=== PATIENT | female | born 1995 | race Caucasian/White ===

== ENCOUNTER 2018-07-11 10:52 | Emergency (ER) | payer OTHER ==
--- NOTE | 2018-07-11 11:38 | RAD REPORT ---
EXAM DESCRIPTION: CT - [id number] - 07/11/2018 11:28 am CLINICAL HISTORY: Fall, head and neck injury COMPARISON: None. TECHNIQUE: Axial 5 mm thick images of the head were obtained. Axial 2 mm thick images of the cervic al spine were obtained with sagittal and coronal reconstruction images generated and reviewed. All CT scans are performed using dose optimization technique as appropriate and may include automated exposure control or mA/KV adjustment according to patient size. FINDINGS: No intracranial hemorrhage, mass, edema or acute intracranial finding. No suspicion for ac radha infarction. No extra-axial fluid collections. Mastoid air cells and paranasal sinuses are clear. No globe or orbit abnormality seen. Cervical bodies are normal in height. No subluxation abnormality. Straightening of the usual cervical lordosis could be muscle spasm or positioning artifact. No disk space narrowing. No fracture or acut e bony abnormality. Central canal detail is inherently limited. No paraspinal mass or hematoma. IMPRESSION: Negative CT head examination for acute or significant finding. Negative CT cervical spine examination for acute or significant finding.
--- NOTE | 2018-07-11 11:47 | RAD REPORT ---
EXAM DESCRIPTION: RAD - Shoulder Left 2 View - 07/11/2018 11:34 am CLINICAL HISTORY: Fall, shoulder pain COMPARISON: None. TECHNIQUE: Internal and external rotation views of the left shoulder were obtained. FINDINGS: There is no fracture or dislocation. AC joint is normal in appearance. No acute or suspici ous findings. IMPRESSION: Negative two-view left shoulder examination.
--- NOTE | 2018-07-11 13:22 | EDPHYS ---
Physician Documentation [facility] Name: Krissy Lal Age: 22 yrs Sex: Female : 1995 Arrival Date: 07/11/2018 Time: 10:57 Bed 10 Private MD: ED Physician Filipe Walden HPI: 07/11 12:56 This 22 yrs old Female presents to ER via Ambulatory with complaints of kb Shoulder Injury, Syncope. 12:56 The patient or guardian complains of an injury, pain, that is acute. left shoulder. kb Context: The problem was sustained at home, resulted from a fall, The patient reports no decreased range of motion. The patient reports no obvious deformity. Onset: The symptoms/episode began/occurred yesterday. Modifying factors: the symptoms are alleviated by nothing. The symptoms are aggravated by movement. Associated signs and symptoms: The patient has no apparent associated signs or symptoms. Severity of symptoms: At their worst the symptoms were moderate, in the emergency department the symptoms are unchanged. Treatment prior to arrival includes: no previous treatment. The patient has not experienced similar symptoms in the past. The patient has not recently seen a physician. Pt states she was drunk last night, fell onto left shoulder and has pain to it now. Full ROM, but slow and painful when doing it. Also reports she had a syncopal episode when she walked to the bathroom this morning at 0600. Denies headache, dizziness or any other symptoms at this time. . 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 - Social history:: Smoking status: Patient/guardian denies using tobacco. - Ebola Screening: : Patient negative for fever greater than or equal to 101.5 degrees Fahrenheit, and additional compatible Ebola Virus Disease symptoms Patient denies exposure to infectious person Patient denies travel to an Ebola-affected area in the 21 days before illness onset No symptoms or risks identified at this time. ROS: 12:56 Constitutional: Negative for fever, chills, and weight loss, Cardiovascular: Negative kb for chest pain, palpitations, and edema, Respiratory: Negative for shortness of breath, cough, wheezing, and pleuritic chest pain, Abdomen/GI: Negative for abdominal pain, nausea, vomiting, diarrhea, and constipation, Back: Negative for injury and pain, : Negative for injury, bleeding, discharge, and swelling, Skin: Negative for injury, rash, and discoloration. 12:56 MS/extremity: Positive for injury or acute deformity, pain. Exam: 12:56 Constitutional: This is a well developed, well nourished patient who is awake, alert, kb and in no acute distress. Head/Face: Normocephalic, atraumatic. Chest/axilla: Normal chest wall appearance and motion. Nontender with no deformity. No lesions are appreciated. Cardiovascular: Regular rate and rhythm with a normal S1 and S2. No gallops, murmurs, or rubs. Normal PMI, no JVD. No pulse deficits. Respiratory: Lungs have equal breath sounds bilaterally, clear to auscultation and percussion. No rales, rhonchi or wheezes noted. No increased work of breathing, no retractions or nasal flaring. Abdomen/GI: Soft, non-tender, with normal bowel sounds. No distension or tympany. No guarding or rebound. No evidence of tenderness throughout. Back: No spinal tenderness. No costovertebral tenderness. Full range of motion. Skin: Warm, dry with normal turgor. Normal color with no rashes, no lesions, and no evidence of cellulitis. Neuro: Awake and alert, GCS 15, oriented to person, place, time, and situation. Cranial nerves II-XII grossly intact. Motor strength 5/5 in all extremities. Sensory grossly intact. Cerebellar exam normal. Normal gait. 12:56 Musculoskeletal/extremity: Extremities: grossly normal except: noted in the left shoulder: pain, ROM: limited active range of motion due to pain, in the left shoulder, Circulation is intact in all extremities. Sensation intact. Vital Signs: 11:10 BP 130 / 94; Pulse 105; Resp 15; Temp 97.8; Pulse Ox 97% on R/A; Weight 90.72 kg; aj Height 5 ft. 5 in. (165.10 cm); 12:45 BP 117 / 83 Supine; Pulse 91; Resp 16; Pulse Ox 100% on R/A; iw 12:48 BP 120 / 76 Sitting; Pulse 95; Resp 16; Pulse Ox 100% ; iw 12:52 BP 109 / 86 Standing; Pulse 110; Resp 16; iw 11:10 Body Mass Index 33.28 (90.72 kg, 165.10 cm) MDM: 11:53 Patient medically screened. kb 13:00 Data reviewed: vital signs, nurses notes. Data interpreted: Pulse oximetry: on room air kb is 100 %. Interpretation: normal. 13:21 Counseling: I had a detailed discussion with the patient and/or guardian regarding: the kb historical points, exam findings, and any diagnostic results supporting the discharge/admit diagnosis, lab results, radiology results, the need for outpatient follow up, a family practitioner, to return to the emergency department if symptoms worsen or persist or if there are any questions or concerns that arise at home. 07/11 12:27 Order name: Urine Dipstick--Ancillary (enter results) [facility] 07/11 12:27 Order name: Urine --Ancillary (enter results) [facility] 07/11 11:12 Order name: XRAY Shoulder LEFT 2 view; Complete Time: 11:52 07/11 11:14 Order name: CT Head C Spine; Complete Time: 11:52 07/11 11:14 Order name: EKG - Nurse/Tech; Complete Time: 13:16 07/11 11:52 Order name: Orthostatics; Complete Time: 12:54 kb 07/11 11:52 Order name: Urine Dipstick-Ancillary (obtain specimen); Complete Time: 12:26 kb 07/11 12:27 Order name: Urine Test (obtain specimen); Complete Time: 12:27 [facility] 07/11 12:56 Order name: Sling; Complete Time: 13:22 kb Administered Medications: No medications were administered Disposition: 07/11/18 13:21 Discharged to Home. Impression: Pain in left shoulder, Syncope and collapse. - Condition is Stable. - Discharge Instructions: Shoulder Pain, [id number], Syncope, [id number]. - Work release form, Medication Reconciliation Form, Thank You Letter, Antibiotic Education, Prescription Opioid Use form. - Follow up: Emergency Department; When: As needed; Reason: Worsening of condition. Follow up: Private Physician; When: 2 - 3 days; Reason: Recheck today's complaints, Continuance of care, Re-evaluation by your physician. Signatures: Dispatcher [employer] [place], LUMBER ESTIMATOR-C LUMBER ESTIMATOR-Alyssa Cornelius, RN RN Michael Jiménez, AUGUSTO GARSIAN erwin [place], Ty hood1 Corrections: (The following items were deleted from the chart) 13:39 13:21 07/11/2018 13:21 Discharged to Home. Impression: Pain in left shoulder; Syncope em and collapse. Condition is Stable. Forms are Medication Reconciliation Form, Thank You Letter, Antibiotic Education, Prescription Opioid Use. Follow up: Emergency Department; When: As needed; Reason: Worsening of condition. Follow up: Private Physician; When: 2 - 3 days; Reason: Recheck today's complaints, Continuance of care, Re-evaluation by your physician. kb
--- NOTE | 2018-07-11 13:22 | ER ---
Nurse's Notes [facility] Name: Krissy Lal Age: 22 yrs Sex: Female : 1995 Arrival Date: 07/11/2018 Time: 10:57 Bed 10 Private MD: Diagnosis: Pain in left shoulder;Syncope and collapse Presentation: 07/11 11:08 Presenting complaint: Patient states: Left shoulder pain after falling last night. Full aj ROM in triage. Patient able to carry wallet with affected arm. Patient also reports syncopal episode this AM when walking to the bathroom. Unknown LOC, reports waking up 1 minute later on bathroom floor. Transition of care: patient was not received from another setting of care. Onset of symptoms was July 10, 2018. Risk Assessment: Do you want to hurt yourself or someone else? Patient reports no desire to harm self or others. Initial Sepsis Screen: Does the patient meet any 2 criteria? No. Patient's initial sepsis screen is negative. Does the patient have a suspected source of infection? No. Patient's initial sepsis screen is negative. Care prior to arrival: None. 11:08 Method Of Arrival: Ambulatory 11:08 Acuity: PAULINO 3 aj Triage Assessment: 11:10 General: Appears in no apparent distress. comfortable, Behavior is calm, cooperative, aj appropriate for age. Pain: Complains of pain in anterior aspect of left shoulder and posterior aspect of left shoulder Pain currently is 8 out of 10 on a pain scale. Neuro: Level of Consciousness is awake, alert, obeys commands, Oriented to person, place, time, situation, Appropriate for age. Respiratory: Airway is patent Respiratory effort is even, unlabored, Respiratory pattern is regular, symmetrical. Derm: Skin is intact, is healthy with good turgor, Skin is pink, warm \T\ dry. normal. Musculoskeletal: Circulation, motion, and sensation intact. Range of motion: intact in all extremities, Reports pain in anterior aspect of left shoulder and posterior aspect of left shoulder. 11:15 Injury Description:. 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 - Social history:: Smoking status: Patient/guardian denies using tobacco. - Ebola Screening: : Patient negative for fever greater than or equal to 101.5 degrees Fahrenheit, and additional compatible Ebola Virus Disease symptoms Patient denies exposure to infectious person Patient denies travel to an Ebola-affected area in the 21 days before illness onset No symptoms or risks identified at this time. Screenin:57 Abuse screen: Denies threats or abuse. Denies injuries from another. Nutritional iw screening: No deficits noted. Tuberculosis screening: No symptoms or risk factors identified. 13:39 Fall Risk None identified. em Assessment: 11:05 General: Appears in no apparent distress. comfortable, Behavior is calm, cooperative. iw Pain: Complains of pain in left shoulder. Neuro: Level of Consciousness is awake, alert, obeys commands, Oriented to person, place, time, situation, Moves all extremities. Full function. Cardiovascular: Patient's skin is warm and dry. Respiratory: Respiratory effort is even, unlabored, Respiratory pattern is regular, symmetrical. Derm: Skin is intact, is healthy with good turgor. Musculoskeletal: Reports pain in left shoulder. 12:53 Reassessment: Patient appears in no apparent distress at this time. Patient and/or iw family updated on plan of care and expected duration. Pain level reassessed. Patient is alert, oriented x 3, equal unlabored respirations, skin warm/dry/pink. pt states she is feeling better, states she had been drinking last night. 12:55 Reassessment: pt requesting to go home, plans to rehydrate at home and go have lunch iw with family. 13:38 Reassessment: Patient appears in no apparent distress at this time. Patient and/or em family updated on plan of care and expected duration. Pain level reassessed. Patient is alert, oriented x 3, equal unlabored respirations, skin warm/dry/pink. Vital Signs: 11:10 BP 130 / 94; Pulse 105; Resp 15; Temp 97.8; Pulse Ox 97% on R/A; Weight 90.72 kg; aj Height 5 ft. 5 in. (165.10 cm); 12:45 BP 117 / 83 Supine; Pulse 91; Resp 16; Pulse Ox 100% on R/A; iw 12:48 BP 120 / 76 Sitting; Pulse 95; Resp 16; Pulse Ox 100% ; iw 12:52 BP 109 / 86 Standing; Pulse 110; Resp 16; iw 11:10 Body Mass Index 33.28 (90.72 kg, 165.10 cm) ED Course: 10:57 Patient arrived in ED. sb2 11:10 Triage completed. aj 11:10 Arm band placed on right wrist. Patient placed in waiting room, Patient notified of wait time. X-ray ordered. 11:28 CT Head C Spine In Process Unspecified. EDMS 11:33 X-ray completed. Patient tolerated procedure well. Patient moved back from radiology. 11:34 XRAY Shoulder LEFT 2 view In Process Unspecified. EDMS 11:51 Marti Baird, RN is Primary Nurse. iw 11:51 Le Lezama FNP-C is PHCP. kb 11:51 Filipe Walden MD is Attending Physician. kb 13:17 EKG done, by electrostatic powder coating technician. dt2 13:38 No provider procedures requiring assistance completed. Patient did not have IV access em during this emergency room visit. Sling applied to left arm. 13:39 Patient has correct armband on for positive identification. em Administered Medications: No medications were administered Outcome: 13:21 Discharge ordered by MD. kb 13:39 Discharged to home ambulatory, with family. em 13:39 Condition: good 13:39 Discharge instructions given to patient, Instructed on discharge instructions, follow up and referral plans. Demonstrated understanding of instructions, follow-up care. 13:39 Patient left the ED. em Signatures: Dispatcher [employer] EDNY Le Lezama FNP-C FNP-Ckb Myers, Amanda RN RN Michael Jiménez, COIL WINDER REPAIR COIL WINDER REPAIR em Marti Baird, RN Aleksandra Cheney Sheri sb2 Chiara Arora dt2 Corrections: (The following items were deleted from the chart) 12:52 12:52 BP 109 / 86 Standing; Pulse 112bpm; Resp 16bpm; iw iw
[2018-07-11 15:19] LABS: Urine Blood NEGATIVE (NEG); Urine Glucose NEGATIVE (NEG); Urine Protein TRACE (NEG); Urine Specific Gravity 1.025 (1.005-1.030)
--- NOTE | 2018-07-13 08:57 | EKG ---
Test Date: 2018-07-11 Test Time: 13:12:21 Radar Tester: THERESA MEASUREMENT RESULTS: Intervals: Rate: 91 OK: 162 QRSD: 88 QT: 352 QTc: 432 Scott: P: 36 OK: 162 QRS: 43 T: 40 INTERPRETIVE STATEMENTS: Normal sinus rhythm Normal ECG No previous ECG available for comparison Electronically Signed On 07-13-18 08:54:46 CDT by Kalen Jara
== END 2018-07-11 13:39 | disposition home or self-care (01) ==
LOC: ER 10:52
DX: R55 Syncope and collapse (principal); W18.30XA Fall on same level, unspecified, initial encounter; Y93.01 Activity, walking, marching and hiking; Y92.002 Bathroom of unspecified non-institutional (private) residence as the place of occurrence of the external cause
CPT/HCPCS: 70450; 72125; 81003; 81025; 93005; 99284

== ENCOUNTER 2019-04-09 07:10 | Emergency (ER) | payer OTHER ==
[2019-04-09 07:53] LABS: Urine Blood 2+ (NEG); Urine Glucose NEGATIVE (NEG); Urine Protein 1+ (NEG); Urine Specific Gravity >1.030 (1.005-1.030); Urine pH 5.5 (5.0-7.0)
[2019-04-09 08:00] LABS: Absolute Monocytes 0.4 K/uL (0.1-1.3); Absolute Neutrophil 5.9 K/uL (1.8-8.0); Basophils % 0.4 % (0-1.3); Eosinophils % 0.6 % (0-4.4); Hematocrit 41.6 % (36.0-45.0); Lymphocytes % 23.9 % (15.3-44.8); MPV 9.2 fL (7.6-11.3); Monocytes % 4.5 % (3.3-12.3); RBC Red Blood Cell Count 4.76 M/uL (3.86-4.86)
[2019-04-09 08:01] LABS: Urine Bacteria <20 /HPF (<20); Urine Culture Reflex Order NOT NEEDED; Urine Mucus MOD /HPF (NONE SEEN); Urine RBC <5 /HPF (NONE SEEN)
[2019-04-09 08:14] LABS: BUN Blood Urea Nitrogen 11 mg/dL (7-18); Bicarbonate 24 mmol/L (21-32); Glucose Level 91 mg/dL (74-106); HCG, Quantitative 511 mIU/mL (1-3); Potassium 3.8 mmol/L (3.5-5.1); Sodium Level 140 mmol/L (136-145)
[2019-04-09] MEDS ORDERED: ACETAMINOPHEN 500 MG TAB ONE (08:39)
--- NOTE | 2019-04-09 10:00 | RAD REPORT ---
EXAM DESCRIPTION: US - Transvaginal OB - 04/09/2019 9:10 am CLINICAL HISTORY: with abdominal pain and vaginal bleeding COMPARISON: None. FINDINGS: The uterus 8 x 5 x 6 centimeters. A 3 x 2.1 x 1.7 centimeter round fluid collection is pr esent within the endometrium containing debris. A pole is not seen. Endometrial stripe measures 15 millimeters and is heterogeneous. The right ovary is enlarged. A 3.6 centimeter right ovarian cyst is present. An adnexal mass is not n oted. Left ovary is enlarged. A 4.6 centimeter hemorrhagic ovarian cyst is seen. An additional 2.8 centimet er hemorrhagic left ovarian cyst suspected. Small amount of fluid IMPRESSION: These findings most likely indicating a blighted ovum. This should be correlated clinica lly and with beta HCG levels. Bilateral ovarian cystic masses. Follow-up ultrasound in a couple months recommended for re-evaluatio n
--- NOTE | 2019-04-09 10:17 | ER ---
Nurse's Notes [facility] Name: Krissy Lal Age: 23 yrs Sex: Female : 1995 Arrival Date: 04/09/2019 Time: 07:12 Bed 13 Private MD: Diagnosis: Threatened ;Unspecified ovarian cysts Presentation: 04/09 07:21 Presenting complaint: Abdominal cramping since last night, dark red vaginal bleeding hb today. Pt reports she is approx 4 weeks , LMP 03/18, . Transition of care: patient was not received from another setting of care. Onset of symptoms was April 08, 2019. Risk Assessment: Do you want to hurt yourself or someone else? Patient reports no desire to harm self or others. Initial Sepsis Screen: Does the patient meet any 2 criteria? No. Patient's initial sepsis screen is negative. Does the patient have a suspected source of infection? No. Patient's initial sepsis screen is negative. Care prior to arrival: None. 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 - Social history:: Smoking status: Patient/guardian denies using tobacco. - Ebola Screening: : No symptoms or risks identified at this time. Screenin:23 Abuse screen: Denies threats or abuse. Denies injuries from another. Nutritional hb screening: No deficits noted. Tuberculosis screening: No symptoms or risk factors identified. Fall Risk None identified. Assessment: 07:20 General: Appears in no apparent distress. comfortable, Behavior is calm, cooperative. rb1 Pain: Complains of pain in suprapubic area and right lower quadrant Pain currently is 3 out of 10 on a pain scale. Neuro: Level of Consciousness is awake, alert, obeys commands, Oriented to person, place, time, situation. Cardiovascular: Capillary refill < 3 seconds is brisk in bilateral fingers. Respiratory: Airway is patent Respiratory effort is even, unlabored, Respiratory pattern is regular, symmetrical. GI: No signs and/or symptoms were reported involving the gastrointestinal system. : Reports vaginal bleeding that is heavy flow dark red, no clots. Derm: Skin is pink, warm \T\ dry. 07:20 Obstetrical Assessment: Patient reports Abdominal pain. rb1 08:20 Reassessment: Patient appears in no apparent distress at this time. Bleeding has rb1 decreased per pt. report. 09:40 Reassessment: Patient appears in no apparent distress at this time. Patient and/or rb1 family updated on plan of care and expected duration. Pain level reassessed. Patient is alert, oriented x 3, equal unlabored respirations, skin warm/dry/pink. Patient states feeling better. 10:30 Reassessment: Patient appears in no apparent distress at this time. No changes from rb1 previously documented assessment. Vital Signs: 07:21 BP 113 / 92; Pulse 110; Resp 16; Temp 97.9; Pulse Ox 98% on R/A; Weight 99.79 kg; hb Height 5 ft. 5 in. (165.10 cm); Pain 0/10; 08:20 BP 114 / 81; Pulse 91; Resp 15; Temp 98.0(O); Pulse Ox 98% on R/A; Pain 0/10; rb1 09:37 BP 116 / 76; Pulse 98; Resp 16; Temp 98.0; Pulse Ox 99% ; mh5 10:30 BP 119 / 77; Pulse 98; Resp 17; Temp 98.3(O); Pulse Ox 99% on R/A; Pain 1/10; rb1 07:21 Body Mass Index 36.61 (99.79 kg, 165.10 cm) hb Vitals: 07:20 Heart Tones Too early to hear FHT. rb1 ED Course: 07:12 Patient arrived in ED. ds1 07:18 Sam Stiles PA is PHCP. cp 07:18 Srini Quijano MD is Attending Physician. cp 07:19 Attending Physician role handed off by Srini Quijano MD cp 07:19 Sam Barber MD is Attending Physician. cp 07:20 Kendra Santana, AWA is Primary Nurse. rb1 07:20 Patient has correct armband on for positive identification. Placed in gown. Bed in low rb1 position. Call light in reach. Side rails up X 1. Pulse ox on. NIBP on. 07:23 Triage completed. hb 07:23 Arm band placed on. hb 07:40 Inserted saline lock: 20 gauge in left antecubital area, using aseptic technique. Blood rb1 collected. 07:55 Warm blanket given. 5 07:55 Urine collected: clean catch specimen, cloudy. 5 07:55 Urine Microscopic Only Sent. 5 08:59 Transvaginal OB In Process Unspecified. EDMS 10:35 No provider procedures requiring assistance completed. rb1 10:35 IV discontinued, intact, bleeding controlled, No redness/swelling at site. Pressure rb1 dressing applied. Administered Medications: 08:25 Drug: Tylenol 1000 mg Route: PO; rb1 09:00 Follow up: Response: No adverse reaction; Pain is decreased rb1 Point of Care Testing: Urine : 09:00 hCG Reading: Positive; Control Reading: Positive; rb1 Outcome: 10:17 Discharge ordered by . cp 10:35 Discharged to home ambulatory. rb1 10:35 Condition: stable 10:35 Discharge instructions given to patient, Instructed on discharge instructions, follow up and referral plans. medication usage, Demonstrated understanding of instructions, follow-up care, medications, Prescriptions given X 1. 10:36 Patient left the ED. rb1 Signatures: Dispatcher [employer] [facility] EctorAlyssa ds1 Sam Stiles PA PA cp Barber, Rebecca RN RN [facility] Philly Correa RN RN hb Martinez, Maria [facility]
--- NOTE | 2019-04-09 10:18 | EDPHYS ---
Physician Documentation [facility] Name: Krissy Lal Age: 23 yrs Sex: Female : 1995 Arrival Date: 04/09/2019 Time: 07:12 Bed 13 Private MD: ED Physician Sam Barber HPI: 04/09 07:38 This 23 yrs old Female presents to ER via Ambulatory with complaints of cp Vaginal Bleeding, + Preg <12wks. 07:38 The patient presents to the emergency department with abdominal pain, of the lower cp abdomen, that started yesterday, vaginal bleeding, started this morning. The estimated gestational age is 4 weeks. course: care: private OB physician, Ultrasound: the patient has not had an ultrasound. 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 - Social history:: Smoking status: Patient/guardian denies using tobacco. - Ebola Screening: : No symptoms or risks identified at this time. ROS: 07:45 Constitutional: Negative for body aches, chills, fever, poor PO intake. cp 07:45 Eyes: Negative for injury, pain, redness, and discharge. cp 07:45 ENT: Negative for drainage from ear(s), ear pain, sore throat, difficulty swallowing, difficulty handling secretions. 07:45 Cardiovascular: Negative for chest pain, edema, palpitations. 07:45 Respiratory: Negative for cough, shortness of breath, wheezing. 07:45 Abdomen/GI: Positive for abdominal pain, Negative for nausea, vomiting, and diarrhea, constipation, black/tarry stool, rectal bleeding. 07:45 : Positive for vaginal bleeding, Negative for urinary symptoms, pelvic pain, flank pain. 07:45 Skin: Negative for rash. 07:45 Neuro: Negative for altered mental status, dizziness, headache, weakness. 07:45 All other systems are negative. Exam: 08:09 Head/Face: Normocephalic, atraumatic. cp 08:09 Constitutional: The patient appears in no acute distress, alert, awake, non-toxic, well developed, well nourished. 08:09 Eyes: Periorbital structures: appear normal, Conjunctiva: normal, no exudate, no injection, Lids and lashes: appear normal, bilaterally. 08:09 ENT: External ear(s): are unremarkable, Nose: is normal, Mouth: is normal, Posterior pharynx: Airway: no evidence of obstruction, patent. 08:09 Chest/axilla: Inspection: normal. 08:09 Cardiovascular: Rate: tachycardic, Rhythm: regular. 08:09 Respiratory: the patient does not display signs of respiratory distress, Respirations: normal, no use of accessory muscles, no retractions, no splinting, no tachypnea. 08:09 Abdomen/GI: Inspection: abdomen appears normal, Bowel sounds: active, all quadrants, Palpation: soft, in all quadrants, mild abdominal tenderness, in the suprapubic area, right lower quadrant and left lower quadrant, rebound tenderness, is not appreciated, voluntary guarding, is elicited in the suprapubic area, right lower quadrant and left lower quadrant. 08:09 Back: pain, is absent, ROM is normal. 08:09 : Pelvic Exam: External exam: is normal, Speculum exam: mild bleeding, no cervicitis, os that is closed, no tissue in cervix is seen, no tissue in vagina is seen, the nurse was present for the exam. 08:09 Skin: no rash present. Vital Signs: 07:21 BP 113 / 92; Pulse 110; Resp 16; Temp 97.9; Pulse Ox 98% on R/A; Weight 99.79 kg; hb Height 5 ft. 5 in. (165.10 cm); Pain 0/10; 08:20 BP 114 / 81; Pulse 91; Resp 15; Temp 98.0(O); Pulse Ox 98% on R/A; Pain 0/10; rb1 09:37 BP 116 / 76; Pulse 98; Resp 16; Temp 98.0; Pulse Ox 99% ; mh5 10:30 BP 119 / 77; Pulse 98; Resp 17; Temp 98.3(O); Pulse Ox 99% on R/A; Pain 1/10; rb1 07:21 Body Mass Index 36.61 (99.79 kg, 165.10 cm) hb MDM: 07:19 Patient medically screened. cp 07:30 Differential diagnosis: STD, threatened Ab, inevitable Ab, complete Ab, retained Ab, cp ectopic . 10:16 Data reviewed: vital signs, nurses notes, lab test result(s), radiologic studies, cp ultrasound. 10:16 Counseling: I had a detailed discussion with the patient and/or guardian regarding: the cp historical points, exam findings, and any diagnostic results supporting the discharge/admit diagnosis, lab results, radiology results, the need for outpatient follow up, to return to the emergency department if symptoms worsen or persist or if there are any questions or concerns that arise at home. Response to treatment: the patient's symptoms have mildly improved after treatment, and as a result, I will discharge patient. 04/09 07:24 Order name: Quantitative Hcg 04/09 07:24 Order name: Abo/rh Typing; Complete Time: 09:04 cp 04/09 09:04 Interpretation: Reviewed. cp 04/09 07:24 Order name: Basic Metabolic Panel; Complete Time: 08:15 cp 04/09 08:15 Interpretation: Normal except: CL 108. 04/09 07:24 Order name: CBC with Diff; Complete Time: 08:15 cp 04/09 07:24 Order name: Urine Microscopic Only; Complete Time: 08:15 cp 04/09 08:17 Interpretation: Normal except: SQEPI 5-10. 04/09 07:26 Order name: HCG, Quantitative; Complete Time: 08:15 EDMS 04/09 08:15 Interpretation: HCGQ 511; Reviewed. 04/09 07:24 Order name: Urine Test (obtain specimen); Complete Time: 07:55 cp 04/09 07:24 Order name: IV Saline Lock; Complete Time: 08:14 cp 04/09 07:45 Order name: Urine Dipstick--Ancillary (enter results); Complete Time: 08:02 ag 04/09 08:02 Interpretation: Normal except: UBLD 2+; UPROT 1+. cp 04/09 07:45 Order name: Urine --Ancillary (enter results); Complete Time: 08:02 ag 04/09 08:02 Interpretation: Reviewed. cp 04/09 08:46 Order name: Transvaginal OB; Complete Time: 10:06 [facility] 04/09 10:01 Order name: ABO/RH no charge; Complete Time: 10:06 [facility] 04/09 07:24 Order name: Labs collected and sent; Complete Time: 08:14 cp 04/09 07:24 Order name: NPO; Complete Time: 08:14 cp 04/09 07:24 Order name: Urine Dipstick-Ancillary (obtain specimen); Complete Time: 08:14 04/09 07:24 Order name: Pelvic Exam Setup; Complete Time: 08:14 cp Administered Medications: 08:25 Drug: Tylenol 1000 mg Route: PO; rb1 09:00 Follow up: Response: No adverse reaction; Pain is decreased rb1 Point of Care Testing: Urine : 09:00 hCG Reading: Positive; Control Reading: Positive; rb1 Disposition: 10:44 Co-signature as Attending Physician, Sam Barber MD I agree with the assessment and [facility] plan of care. Disposition: 04/09/19 10:17 Discharged to Home. Impression: Threatened , Unspecified ovarian cysts. - Condition is Stable. - Discharge Instructions: Ovarian Cyst, Threatened Miscarriage, Pelvic Rest. - Prescriptions for Vitamin 27- 0.8 mg Oral Tablet - take 1 tablet by ORAL route once daily; 30 tablet. - Medication Reconciliation Form, Thank You Letter, Antibiotic Education, Prescription Opioid Use form. - Follow up: Private Physician; When: 48 Hours; Reason: Repeat Beta-HCG (48 Hours). - Problem is new. - Symptoms have improved. Signatures: Dispatcher [employer] [facility] Sam Barber MD MD cha Page, Corey, PA PA cp Kendra Santana, RN RN rb1 Philly Correa RN RN Corrections: (The following items were deleted from the chart) 08:46 08:21 Transvaginal Study (Probe)+[id number] ordered. [facility] 10:36 10:17 04/09/2019 10:17 Discharged to Home. Impression: Threatened ; Unspecified rb1 ovarian cysts. Condition is Stable. Forms are Medication Reconciliation Form, Thank You Letter, Antibiotic Education, Prescription Opioid Use. Follow up: Private Physician; When: 48 Hours; Reason: Repeat Beta-HCG (48 Hours). Problem is new. Symptoms have improved. cp
== END 2019-04-09 10:36 | disposition home or self-care (01) ==
LOC: ER 07:10
DX: O20.0 Threatened abortion (principal); O34.81 Maternal care for other abnormalities of pelvic organs, first trimester; N83.202 Unspecified ovarian cyst, left side; N83.201 Unspecified ovarian cyst, right side; Z3A.01 Less than 8 weeks gestation of pregnancy
CPT/HCPCS: 36415; 76817; 80048; 81003; 81015; 81025; 84702; 85025; 86900; 86901; 99284